=== PATIENT | female | born 1965 | race Two or more races ===

== ENCOUNTER 2020-06-21 14:04 | Outpatient (CLI) | payer OTHER ==
[~2020-06-21 14:04] MED LIST: ASA81 MG PO; DIAZEPAM5 MG PO; LIPITOR20 MG PO; SYNTHROID137 MCG PO
== END 2020-06-21 14:17 | disposition home or self-care (01) ==
LOC: MAMO-SONO 14:04
PROVIDERS: ATTEND Internal Medicine Sports Medicine
DX: Z12.31 Encounter for screening mammogram for malignant neoplasm of breast (principal)

== ENCOUNTER 2020-07-01 10:41 | Outpatient (CLI) | payer OTHER | END 2020-07-01 10:54 | disposition home or self-care (01) | LOC: NUCLEAR 10:41 | PROVIDERS: ATTEND Internal Medicine Sports Medicine | DX: M85.89 Other specified disorders of bone density and structure, multiple sites (principal) ==

== ENCOUNTER 2022-05-05 09:45 | Outpatient (CLI) | payer OTHER | END 2022-05-05 10:05 | disposition home or self-care (01) | LOC: RAD 09:45 | PROVIDERS: ATTEND Internal Medicine Sports Medicine | DX: Z12.31 Encounter for screening mammogram for malignant neoplasm of breast (principal) ==